=== PATIENT | male | born 1950 | race Caucasian/White ===

== ENCOUNTER 2017-12-30 10:01 | Day surgery (SDC) | payer BC ==
[~2017-12-30 10:01] MED LIST: CEFAZOLIN 2 GM/50 ML (PMX) 50 ML IVPB; SOD CHLORIDE 0.9% 1,000 ML IV
[2017-12-30] MEDS ORDERED: FENTAnyl 50 MCG/ML VIAL (20:39)
== END 2017-12-31 09:21 | disposition home or self-care (01) ==
LOC: SDS 10:01
DX: K43.9 Ventral hernia without obstruction or gangrene (principal); Z53.9 Procedure and treatment not carried out, unspecified reason; Z79.02 Long term (current) use of antithrombotics/antiplatelets

== ENCOUNTER 2018-01-09 09:46 | Day surgery (SDC) | payer BC ==
[~2018-01-09 09:46] MED LIST changes: +GLYCOPYRROLATE 0.4 MG INJ; +LIDOCAINE 2% (SDV) 5 ML INJ; +NEOSTIGMINE 3 MG/3 ML SYRINGE
[2018-01-09] MEDS ORDERED: BUPIVACAINE 0.25% (MPF) 30 ML INJ (13:20)
[2018-01-09] MEDS ORDERED: DOPamine-D5W 1.6 MG/ML 0 ML (13:26)
[2018-01-09] MEDS ORDERED: ROCURONIUM 50 MG INJ (13:27)
[2018-01-09] MEDS ORDERED: PROPOFOL 20 ML (13:27)
[2018-01-09] MEDS ORDERED: LABETALOL HCL 20MG INJ ×2 (13:44→14:54)
[2018-01-09] MEDS ORDERED: CEFAZOLIN 1 GM INJ (13:55)
[2018-01-09] MEDS: BUPIVACAINE 0.25% (MPF) 30 ML INJ INJ (14:16)
[2018-01-09] MEDS: POLYMYXIN/BACITRACIN 1L IRRIG (14:24)
[2018-01-09] MEDS ORDERED: ALBUTEROL 0.083% (NEB) 2.5 MG/3 ML AMP HHN (15:00)
[2018-01-09] MEDS ORDERED: FENTAnyl 50 MCG/ML VIAL IV ×3 (15:00)
[2018-01-09] MEDS ORDERED: METOCLOPRAMIDE 10 MG INJ IV (15:00)
[2018-01-09] MEDS ORDERED: EPHEDrine SULFATE 50 MG/5 ML SYG IV (15:00)
[2018-01-09] MEDS ORDERED: KETOROLAC 30 MG INJ IV (15:00)
[2018-01-09] MEDS ORDERED: HYDROmorphONE (0.2 MG/ML) 10ML SYG IV ×3 (15:00→15:08)
[2018-01-09] MEDS ORDERED: DIPHENHYDRAMINE 50 MG INJ IV (15:00)
[2018-01-09] MEDS ORDERED: ONDANSETRON 4 MG INJ IV (15:00)
[2018-01-09] MEDS ORDERED: OXYCODONE/ACETAMINOPHEN (5/325) TAB PO ×2 (15:00)
[2018-01-09] MEDS ORDERED: MEPERIDINE 25 MG INJ (15:02)
[2018-01-09] MEDS: MEPERIDINE 25 MG INJ IV (15:10)
[2018-01-09] MEDS: LABETALOL HCL 20MG INJ IV ×3 (15:11→15:41)
[2018-01-09] MEDS: HYDROmorphONE (0.2 MG/ML) 10ML SYG IV ×5 (15:12→15:45)
[2018-01-09] MEDS: HYDROCODONE/APAP (5/325) TAB PO (16:32)
[2018-01-09] MEDS: hydrALAzine 20 MG INJ IV (16:59)
== END 2018-01-09 17:36 | disposition home or self-care (01) ==
LOC: SDS 09:46
DX: K43.6 Other and unspecified ventral hernia with obstruction, without gangrene (principal); I10 Essential (primary) hypertension; E66.9 Obesity, unspecified; Z68.34 Body mass index [BMI] 34.0-34.9, adult
CPT/HCPCS: 49561; 88307